=== PATIENT | male | born 1990 | race Caucasian/White ===

== ENCOUNTER 2017-12-04 02:32 | Emergency (ER) | payer OTHER ==
[2017-12-04] MEDS ORDERED: Ondansetron HCl/PF 4 MG/2 ML Vial ONE (03:23)
[2017-12-04] MEDS ORDERED: Morphine 4 MG/ML VIAL ONE (03:23)
[2017-12-04] MEDS ORDERED: HYDROcodone/Acetaminophen 10/325 mg Tablet ONE (04:27)
== END 2017-12-04 05:04 | disposition home or self-care (01) ==
LOC: ERS 02:32
DX: G89.18 Other acute postprocedural pain (principal); M25.511 Pain in right shoulder; Z79.1 Long term (current) use of non-steroidal anti-inflammatories (NSAID)
CPT/HCPCS: 96374; 96375; J2270; J2405